=== PATIENT | male | born 1980 | race Caucasian/White ===

== ENCOUNTER 2022-06-23 10:33 | Emergency (ER) | payer OTHER ==
[~2022-06-23] VITALS: Ht 185.4 cm; Wt 95.5 kg
[2022-06-23 10:53] LABS: BASO # 0.1 K/mm3 (0.0-0.2); BASO % 0.6 % (0.0-2.0); EOS % 0.1 % (0.0-4.0); GRAN # 6.2 K/mm3 (1.4-6.5); GRAN % 70.1 % (42.2-75.2); HEMATOCRIT 40.3 % (42.0-52.0); LYMPH % 23.2 % (20.0-51.0); MEAN CELL VOLUME 78 fl (80.0-100.0); MEAN CORPUSCULAR HEMOGLOBIN 27 pg (27-31); MEAN CORPUSCULAR HGB CONC 35 g/dl (33.0-37.0); MEAN PLATELET VOLUME 9.4 fl (7.4-10.4); MONO # 0.5 K/mm3 (0.1-0.6); MONO % 5.8 % (1.7-9.3); PLATELET COUNT 299 K/mm3 (130-400); RED BLOOD COUNT 5.17 M/mm3 (4.20-5.60); REDCELL DISTRIBUTION WIDTH-CV 13.8 % (11.5-14.5)
[2022-06-23 11:03] LABS: BILIRUBIN,TOTAL 0.9 mg/dL (0.2-1.2); C-REACTIVE PROTEIN 0.09 mg/dL (0.00-0.50); CALCIUM 8.6 mg/dL (8.4-10.2); CREATININE, serum 0.84 mg/dL (0.72-1.25); POTASSIUM 3.8 mmol/L (3.5-4.5); TOTAL PROTEIN 6.8 gm/dL (6.2-8.1)
[2022-06-23 12:36] LABS: COLLECTION METHOD CLEAN CATCH
[2022-06-23 12:41] LABS: PH 8.5 (5.0-8.5); URINE APPEARANCE Clear (CLEAR/HAZY); URINE BLOOD Negative (NEGATIVE); URINE COLOR Yellow (YELLOW); URINE GLUCOSE Negative (NEGATIVE); URINE KETONE 1+ (NEGATIVE); URINE NITRATE Negative (NEGATIVE); URINE PROTEIN(semi-quant) Negative (NEGATIVE); URINE UROBILINOGEN 0.2 E.U/dL (0.2-1.0)
[2022-06-23] MEDS ORDERED: ZOFRAN ODT4 MG PO (12:47)
[2022-06-23] MEDS ORDERED: BONINE25 MG PO (12:47)
[2022-06-23 13:03] VITALS: BP 125/79; PULSE 74; TEMP 97.5
[2022-06-23 13:21] LABS: SQUAMOUS EPITHELIAL None Seen /hpf (0-10); URINE BACTERIA None Seen /hpf (NONE SEEN); URINE RBC 0-2 /hpf (0-2)
== END 2022-06-23 13:03 | disposition home or self-care (01) ==
LOC: COL.ER 10:33
PROVIDERS: Family Medicine
DX: H83.03 Labyrinthitis, bilateral (principal); Z91.040 Latex allergy status; Z20.822 Contact with and (suspected) exposure to COVID-19
CPT/HCPCS: J7120